=== PATIENT | male | born 1995 | race Two or more races ===

== ENCOUNTER 2021-04-17 16:07 | Emergency (ER) | payer SELFPAY ==
[~2021-04-17] VITALS: Ht 170.2 cm; Wt 99.5 kg
[2021-04-17 16:34] VITALS: BP 131/87
--- NOTE | 2021-04-17 17:23 | PHYS DOC ---
Past Medical History Past Surgical History: No Surgical History Smoking Status: Current Every Day Smoker Additional Information: 1 ppd Alcohol Use: Occasionally General Adult EDM: Chief Complaint: SEXUALLY TRANSMITTED DISEASE HPI: HPI: Patient is a 25 year old male who presents with 1 day of white drainage coming from the tip of his penis and burning with urination. He states he has not had sex with anybody within sexual transmitted disease that he knows of. He denies abdominal pain, back pain, fever, nausea, vomiting, scrotal pain, lesions. He has a history of smoking 1 pack a day. He denies any pain at this time. Review of Systems: Review of Systems: Constitutional: Denies fever or chills. [] Eyes: Denies change in visual acuity. [] HENT: Denies nasal congestion or sore throat. [] Respiratory: Denies cough or shortness of breath. [] Cardiovascular: Denies chest pain or edema. [] GI: Denies abdominal pain, nausea, vomiting, bloody stools or diarrhea. [] : Denies dysuria. + Burning with urination . + Penile drainage [] Musculoskeletal: Denies back pain or joint pain. [] Integument: Denies rash. [] Neurologic: Denies headache, focal weakness or sensory changes. [] Endocrine: Denies polyuria or polydipsia. [] Lymphatic: Denies swollen glands. [] Psychiatric: Denies depression or anxiety. [] Heart Score: C/O Chest Pain: No Allergies: Allergies: Allergies Coded Allergies Type Severity Reaction Last Updated Verified No Known Drug Allergies 04/17/21 No Physical Exam: PE: Constitutional: Well developed, well nourished, no acute distress, non-toxic appearance. [] HENT: Normocephalic, atraumatic, bilateral external ears normal, oropharynx moist, no oral exudates, nose normal. [] Eyes: PERRLA, EOMI, conjunctiva normal, no discharge. [] Neck: Normal range of motion, no tenderness, supple, no stridor. [] Cardiovascular:Heart rate regular rhythm, no murmur [] Lungs & Thorax: Bilateral breath sounds clear to auscultation [] Abdomen: Bowel sounds normal, soft, no tenderness, no masses, no pulsatile masses. [] Skin: Warm, dry, no erythema, no rash. Large ringworm to anterior right shoulder. Balantitis of penis with some redness and excoriation. [] Back: No tenderness, no CVA tenderness. [] Extremities: No tenderness, no cyanosis, no clubbing, ROM intact, no edema. [] Neurologic: Alert and oriented X 3, normal motor function, normal sensory function, no focal deficits noted. [] Psychologic: Affect normal, judgement normal, mood normal. [] Current Patient Data: Vital Signs: Vital Signs Date Time Temp Pulse Resp B/P (MAP) Pulse Ox O2 Delivery O2 Flow Rate FiO2 04/17/21 16:34 99.1 94 16 131/87 (102) 97 Room Air 99.1 EKG: EKG: [] Radiology/Procedures: Radiology/Procedures: [] Course & Med Decision Making: Course & Med Decision Making Pertinent Labs and Imaging studies reviewed. (See chart for details) See HPI. Alert and oriented x4. Ambulatory steady gait. Speaks in full clear sentences. [place]-speaking and an generation technologist phone is used. Skin pink warm and dry. Patient does have a very large ringworm on his dorsal right shoulder that he states has been there for weeks. Is very itchy. Patient also has Balantits. Abdomen is soft and nontender. No white drainage is seen at this time. No lesions. No scrotal swelling or redness. Patient is treated with Rocephin and . He is educated he will be called only if something comes back positive on his chlamydia and gonorrhea. [] Jarod Disclaimer: Jarod Disclaimer: This electronic medical record was generated, in whole or in part, using a voice recognition dictation system. Departure Departure Impression: Primary Impression: Sexually transmitted disease (STD) Additional Impressions: Balanitis Ringworm of body Disposition: 01 HOME / SELF CARE / HOMELESS Condition: STABLE Referrals: NO PCP (PCP) Patient Instructions: Sexually Transmitted Diseases-[facility] Additional Instructions: Take medication as prescribed and with food. If you continue to have problems you need to go to your primary care or a urologist of your choice. Drink plenty of fluids. Do not have sex for 10 days after you finish your prescription for your antibiotic. You will be called only if you are results are positive. The results should be back within 48 hours. Scripts Clotrimazole (CLOTRIMAZOLE) 15 Gm Cream..g. 1 TAJ TP BID for 10 Days, #30 GM Prov: SHIMA ROUSSEAU APRN 04/17/21 Ketoconazole (KETOCONAZOLE) 15 Gm Cream..g. 1 TAJ TP BID for Ring worm for 14 Days, #60 GM 1 Refill Prov: SHIMA ROUSSEAU APRN 04/17/21 Doxycycline Hyclate (DOXYCYCLINE HYCLATE) 100 Mg Capsule 1 CAP PO BID, #14 CAP Prov: SHIMA ROUSSEAU APRN 04/17/21 SHIMA ROUSSEAU APRN Apr 17, 2021 17:22
[2021-04-17 17:51] LABS: BILIRUBIN,URINE NEGATIVE (NEG); CLARITY,URINE CLEAR; COLOR,URINE YELLOW; NITRITE,URINE NEGATIVE (NEG); PROTEIN,URINE NEGATIVE (NEG-TRACE); UROBILINOGEN,URINE 0.2 mg/dL (0.2 mg/dL)
[2021-04-17] MEDS ORDERED: DOXY100C3 PO (18:00)
[2021-04-17 18:03] LABS: BACTERIA,URINE 0 /HPF (0-FEW); RBC,URINE 0 /HPF (0-2); WBC,URINE 0 /HPF (0-4)
[2021-04-17] MEDS ORDERED: cefTRIAXone IM 500 MG VIAL. IM ONE (18:30)
[2021-04-17] MEDS ORDERED: CLOT15CR23 TP (18:31)
[2021-04-17] MEDS ORDERED: KETO15CR2 TP (18:31)
== END 2021-04-17 18:35 | disposition home or self-care (01) ==
LOC: ER 16:07
DX: A64 Unspecified sexually transmitted disease (principal); N48.1 Balanitis; B35.4 Tinea corporis; F17.200 Nicotine dependence, unspecified, uncomplicated
CPT/HCPCS: 81001; 87491; 87591; 96372; 99283; J0696; 99284